=== PATIENT | male | born 1960 | race Caucasian/White ===

== ENCOUNTER 2017-12-22 09:58 | Emergency (ER) | payer BC, MEDICARE ==
--- NOTE | 2017-12-22 10:27 | PHYS DOC ---
Adult General Chief Complaint Chief Complaint: CPR/FULL ARREST HPI HPI Patient is a 57 year old male who presented with cardiac arrest. Per EMS patient with history of coronary artery disease status post CABG and type 2 diabetes. Patient with acute arrest while vacationing with family at the local [facility]. Chest compressions started almost immediately by bystanders. EMS on scene approximately 3 minutes after arrest [id number]. They provided ACLS. Patient remained in asystole arrest for them. For EMS patient had eye gel placed , and tidal CO2 in the 40s, epinephrine per ACLS protocol. The mechanism ground level fall approximately 2 days ago with report of sore ribs since that time. But no neurological changes. Review of Systems Review of Systems Unable to obtain 2/2 acuity Physical Exam Physical Exam Constitutional: obese, unresponsive. HENT: Normocephalic, atraumatic, Eyes: Pupils 4mm, nonreactive Neck: trachea midline, no vein distention Cardiovascular: Weak femoral pulses with good chest compressions. No radial or DP pulses with chest compression Lungs & Thorax: igel in place, gastric secretions around igel. Bilateral breath sounds present with bagging. Bruising over R chest wall, no crepitus, no palpable rib abnormalities. normal wall movement with bagging. Abdomen: Distended ABD, small areas of ecchymosis to anterior abd Skin: bruising as above to R chest wall, and anterior abd. mottled skin to distal extremities Extremities: mottled appearance to distal extremities. Pulses as above. No deformities Neurologic: unresponsive Current Patient Data Lab Values Laboratory Tests Test 12/22/17 10:08 Glucose (Fingerstick) 503 mg/dL (70-99) *H EKG EKG [] Radiology/Procedures Radiology/Procedures [] Course & Med Decision Making Course & Med Decision Making Pertinent Labs and Imaging studies reviewed. (See chart for details) []10:34 please refer to RN code documentation for complete details. Patient remained in asystole during the code. Igel was exchanged for ET tube there were large amounts of gastric secretions in his airway. On arrival family asked that we stop. Spouse stated "I know he's . Time of called at 10:10. I spoke with Dr. Grupo Vail patient's primary care doctor in [place], [place]. He confirmed long history of cardiac and chronic illnesses. He is agreeable to sign the certificate. Dragon Disclaimer Dragon Disclaimer This electronic medical record was generated, in whole or in part, using a voice recognition dictation system. Intubation Intubation : Time of Intubation: 10:08 Intubation Method: orotracheal Tube Size (cm): 7.5 Breath Sounds after Intubation: equal Intubation Complications: no complications Post Intubation Xray: No Departure Departure Impression: Primary Impression: Cardiac arrest Additional Impressions: Acute respiratory failure CAD (coronary artery disease) DMII (diabetes mellitus, type 2) Disposition: 20 Condition: Referrals: NO PCP (PCP) Problem Qualifiers PHILIP GASTELUM DO Dec 22, 2017 10:27
== END 2017-12-22 12:20 | disposition expired ==
LOC: ER 09:58
DX: I46.9 Cardiac arrest, cause unspecified (principal); J96.00 Acute respiratory failure, unspecified whether with hypoxia or hypercapnia; E11.9 Type 2 diabetes mellitus without complications; I25.10 Atherosclerotic heart disease of native coronary artery without angina pectoris; E66.9 Obesity, unspecified; Z95.1 Presence of aortocoronary bypass graft; S30.1XXA Contusion of abdominal wall, initial encounter; X58.XXXA Exposure to other specified factors, initial encounter; Y93.89 Activity, other specified; Y92.89 Other specified places as the place of occurrence of the external cause; Y99.8 Other external cause status
CPT/HCPCS: 31500; 82962; 99285-25